=== PATIENT | male | born 1955 | race Caucasian/White ===

== ENCOUNTER → 2018-06-01 | Outpatient (CLI) | payer BC ==
--- NOTE | 2018-06-01 15:09 | Diagnostic Imaging Report ---
EXAMINATION: MRI of the lumbar spine without contrast HISTORY: Low back pain for the last 6 weeks after twisting the back COMPARISON: None. TECHNIQUE: Sagittal T1, T2, STIR; axial T2 and proton density. FINDINGS: It is assumed that there are 5 lumbar vertebrae. Curvature/Alignment: Normal lordosis. Subtle left-sided curvature. Vertebrae: No evidence of recent fracture, infection, or neoplasm. Conus: Normal, terminating at L1 Cauda equina: Unremarkable. Lower thoracic: Unremarkable. Paraspinal soft tissues: Partially visualized T2 hyperintense probable cyst in the left kidney, please see dictation of abdomen MRI and 07/24/2014 for further detail. Degenerative changes: L1-L2: Unremarkable. L2-L3: Mild symmetric disc bulge without canal or foraminal stenoses. L3-L4: Mild symmetric disc bulge with a small 3 mm AP diameter central disc protrusion and minimal flattening of the ventral thecal sac. Mild facet arthrosis. No significant canal or foraminal stenoses, no evidence of nerve root compression. L4-L5: Minimal disc bulge and endplate osteophytes, mild facet arthrosis. No canal or foraminal stenosis. L5-S1: Facet arthrosis minimally on the left with mild narrowing of the left lateral recess, no evidence of nerve root compression. IMPRESSION: Mild degenerative changes from L2-L3 to L5-S1 without significant spinal canal or foraminal stenosis. Signed by: Dr. Georgette Alvarez M.D. on 06/01/2018 3:06 PM
== END ==
LOC: MRI 10:25
PROVIDERS: ATTEND Family Medicine
DX: M51.26 Other intervertebral disc displacement, lumbar region (principal)
CPT/HCPCS: 72148

== ENCOUNTER → 2019-11-09 | Day surgery (SDC) | payer BC ==
[~2019-11-09] MED LIST: ALLOPURINOL300 MG PO; AMLODIPINE BESYL5 MG PO; BYSTOLIC10 MG PO; FENTANYL CITRATE/PF 100MCG/2 ML INJ ONE; FLOMAX0.4 MG PO; HYOSCYAMINE 0.125 MG TAB ONE; LIDOCAINE HCL 2% LOCAL INJ 5 ML SDV VIAL INJ ONE; MIDAZOLAM HCL 2 MG/2 ML VIAL ONE; NEXIUM I.V.40 MG PO; PROPOFOL IV EMULSION 10 MG/ML 50 ML VIAL ONE
--- OUTSIDE RECORDS SUMMARY | 2019-11-09 08:57 | XMS REPORT ---
Author Author [facility] Address Unknown Phone Unavailable Care Team Providers Care Expressive Therapist Name Role Phone DANGELO JACQUES Unavailable Unavailable Problems This patient has no known problems. Allergies, Adverse Reactions, Alerts This patient has no known allergies or adverse reactions. Medications This patient has no known medications. Results Test Description Test Time Test Comments Text Results Atomic Results Result Comments MRI SPINE LUMBAR WO 2018-06-01 12:24:00 [place] [address] Patient Name: DAE GOMEZ MR #: [id number] : 1955 Age/Sex: 62/M Req #: [id number] Adm Physician: Ordered by: JACQUES ANDREW DO Report #: [id number] Location: MRI Room/Bed: Procedure: [id number] MRI/MRI SPINE LUMBAR WO Exam Date: Exam Time: REPORT STATUS: Signed EXAMINATION: MRI of the lumbar spine without contrast HISTORY: Low back pain for the last 6 weeks after twisting the back COMPARISON: None. TECHNIQUE: Sagittal T1, T2, STIR; axial T2 and proton density. FINDINGS: It is assumed that there are 5 lumbar vertebrae. Curvature/Alignment: Normal lordosis. Subtle left-sided curvature. Vertebrae: No evidence of recent fracture, infection, or neoplasm. Conus: Normal, terminating at L1 Cauda equina: Unremarkable. Lower thoracic: Unremarkable. Paraspinal soft tissues: Partially visualized T2 hyperintense probable cyst in the left kidney, please see dictation of abdomen MRI and 07/24/2014 for further detail. Degenerative changes: L1- L2: Unremarkable. L2-L3: Mild symmetric disc bulge without canal or foraminal stenoses. L3-L4: Mild symmetric disc bulge with a small 3 mm AP diameter central disc protrusion and minimal flattening of the ventral thecal sac. Mild facet arthrosis. No significant canal or foraminal stenoses, no evidence of nerve root compression. L4-L5: Minimal disc bulge and endplate osteophytes, mild facet arthrosis. No canal or foraminal stenosis. L5-S1: Facet arthrosis minimally on the left with mild narrowing of the left lateral recess, no evidence of nerve root compression. IMPRESSION: Mild degenerative changes from L2-L3 to L5-S1 without significant spinal canal or foraminal stenosis. Signed by: Dr. Farida Alvarez M.D. on 06/01/2018 3:06 PM Dictated By: FARIDA ALVAREZ MD [id number] Transcribed By: ALEJANDRO on 06/01/18 1506 COPY TO: DANGELO JACQUES DO
[2019-11-09 12:00] VITALS: BP 122/77
--- NOTE | 2019-11-09 18:20 | Operative Report ---
DATE OF PROCEDURE: 11/09/2019 SURGEON: Brian Connell MD PROCEDURE: Colonoscopy with polypectomy. INDICATION FOR COLONOSCOPY: Colorectal cancer screening. MEDICATIONS: The patient was done under MAC, please see Anesthesiologist's note. PROCEDURE IN DETAIL: With the patient in left lateral decubitus position, a flexible fiberoptic Olympus colonoscope was inserted into the rectum with ease and advanced all the way to the cecum. Some minimal diverticular disease was noted in the cecum. The scope was then withdrawn slowly. Mucosa overlying the ascending and the transverse appeared to be within normal limits. One polyp was hot biopsied from the descending colon. A semi-circumferential mass that was ulcerated, was noted at approximately 28 cm from the anal verge that was biopsied and tattooed. One polyp was hot biopsied from the distal rectum. The scope was then retroflexed into the distal rectum and small internal hemorrhoids were noted, none of which was actively bleeding. The scope was then straightened out, it was subsequently withdrawn. The patient tolerated the procedure well. IMPRESSION: 1. Descending colon polyp, hot biopsied. 2. Semi-circumferential mass, sigmoid colon, ulcerated, 28 cm from the anal verge, biopsied and tattooed. 3. Rectal polyp, hot biopsied. 4. Internal hemorrhoids, none actively bleeding. PLAN: Follow up histology. CT scan of abdomen and pelvis. General surgical consultation with Dr. Tre Brennan. Brian Connell MD [facility] [place]/MODL /[id number] cc: DO Tre Lund MD
== END | disposition home or self-care (01) ==
LOC: OR 07:43
PROVIDERS: ATTEND Internal Medicine Gastroenterology
DX: Z12.11 Encounter for screening for malignant neoplasm of colon (principal); D12.5 Benign neoplasm of sigmoid colon; K63.5 Polyp of colon; K62.1 Rectal polyp; K64.8 Other hemorrhoids; K63.89 Other specified diseases of intestine; Z01.810 Encounter for preprocedural cardiovascular examination; K21.9 Gastro-esophageal reflux disease without esophagitis; I10 Essential (primary) hypertension; N40.0 Benign prostatic hyperplasia without lower urinary tract symptoms; M10.9 Gout, unspecified; Z68.33 Body mass index [BMI] 33.0-33.9, adult
CPT/HCPCS: 45380; 45384; 93005; J2001; J2250; J2704; J3010; 45378; 45381

== ENCOUNTER → 2019-11-12 | Outpatient (CLI) | payer BC ==
[~2019-11-12] MED LIST changes: +DIATRIZOATE MEGL/DIATRIZOA SOD 30 ML BTL PO ONE; -FENTANYL CITRATE/PF 100MCG/2 ML INJ ONE; -HYOSCYAMINE 0.125 MG TAB ONE; +IOPAMIDOL 370 MG/ML 200 ML INFUS..BTL INJ ONE; -LIDOCAINE HCL 2% LOCAL INJ 5 ML SDV VIAL INJ ONE; -MIDAZOLAM HCL 2 MG/2 ML VIAL ONE; -PROPOFOL IV EMULSION 10 MG/ML 50 ML VIAL ONE; +SODIUM CHLORIDE 0.9% 500ML 500 ML ONE; +SODIUM CHLORIDE 0.9% 50ML 50 ML ONE
[2019-11-12 16:18] LABS: CREATININE, SERUM 1.37 mg/dL (0.72-1.25)
--- NOTE | 2019-11-13 09:57 | Diagnostic Imaging Report ---
EXAM: CT Abdomen and Pelvis WITH contrast INDICATION: Colon/rectal polyp. COMPARISON: MRI lumbar spine 06/01/2018. TECHNIQUE: Abdomen and pelvis were scanned utilizing a multidetector helical scanner from the lung base to the pubic symphysis after administration of IV contrast. Coronal and sagittal reformations were obtained. Routine protocol was performed. Scan was performed when during portal venous phase. IV CONTRAST: 100 cc of Isovue-370 ORAL CONTRAST: Gastrografin COMPLICATIONS: None RADIATION DOSE: Total DLP: 848.8 mGy*cm Estimated effective dose: (DLP x 0.015 x size factor) mSv CTDIvol has been reviewed. It is below the limits set by the Radiation Protocol Committee (RPC). FINDINGS: LINES and TUBES: None. LOWER THORAX: Patchy dependent atelectasis. HEPATOBILIARY: Diffuse mild hepatic steatosis. Multiple subcentimeter hepatic hypodensities are too small to characterize, but likely represent cysts. No evidence of focal lesion. No biliary ductal dilation. GALLBLADDER: Cholelithiasis without evidence of cholecystitis. SPLEEN: No splenomegaly. PANCREAS: No focal masses or ductal dilatation. ADRENALS: No adrenal nodules KIDNEYS/URETERS: Kidneys enhance symmetrically. Bilateral renal cortical scarring. No evidence of solid mass. There is a 1.3 cm left upper pole simple cyst. GI TRACT: No evidence of wall thickening or distension. Appendix is not clearly identified. There is however no fat stranding or adenopathy in the right lower quadrant to suggest appendicitis. PELVIC ORGANS/BLADDER: Partially decompressed bladder which appears mildly thick-walled. The prostate measures 4.3 cm. LYMPH NODES: No lymphadenopathy. VESSELS: There is mild atherosclerotic disease in the aorta and major arterial branches. Retroaortic left renal vein. PERITONEUM / RETROPERITONEUM: No free air or fluid. BONES AND SOFT TISSUES: Unremarkable. CONCLUSION: No evidence of metastatic disease in the abdomen or pelvis. Mildly thick-walled bladder, which may represent decompression versus cystitis in the appropriate clinical setting. Diffuse mild hepatic steatosis. Signed by: Dr. Beena Mace MD on 11/13/2019 9:54 AM
== END ==
LOC: CT 15:30
PROVIDERS: ATTEND Internal Medicine Gastroenterology
DX: R19.09 Other intra-abdominal and pelvic swelling, mass and lump (principal); K63.9 Disease of intestine, unspecified
CPT/HCPCS: 36415; 74177; 82565; 84520; 96360; J7040; Q9967

== ENCOUNTER 2019-12-17 06:42 | Inpatient (IN) | payer BC ==
--- NOTE | 2019-12-13 11:20 | Diagnostic Imaging Report ---
EXAMINATION: CHEST 2 VIEWS INDICATION: Pre-operative COMPARISON: None FINDINGS: LINES/TUBES:None LUNGS:The lungs are well-inflated. No focal consolidation or pulmonary edema. PLEURA:No pleural effusion or pneumothorax. MEDIASTINUM:The cardiomediastinal silhouette appears normal in size and shape. BONES/SOFT TISSUES:No acute osseous injury. ABDOMEN:No free air under the diaphragm. IMPRESSION: No focal pneumonia or pulmonary edema. Signed by: Rio Jarrell MD on 12/13/2019 11:17 AM
[2019-12-13 11:26] LABS: ALBUMIN 3.8 g/dL (3.5-5.0); ALBUMIN/GLOBULIN RATIO 1.3 (0.8-2.0); ANION GAP 12.4 mmol/L (8-16); CALCIUM 9.3 mg/dL (8.4-10.2); CREATININE, SERUM 1.6 mg/dL (0.72-1.25); POTASSIUM 3.4 mmol/L (3.5-5.1)
[2019-12-13 11:29] LABS: BASOPHILS % 0.6 % (0.0-1.0); EOSINOPHILS # (AUTO) 0.1 (0.0-0.4); EOSINOPHILS % 1.8 % (0.0-6.0); HEMATOCRIT 39.6 % (38.2-49.6); HEMOGLOBIN 13.2 g/dL (14.0-18.0); LYMPHOCYTES # (AUTO) 1.5 (1.0-3.2); LYMPHOCYTES % 29.2 % (18.0-39.1); MEAN CORPUSCULAR HGB CONC 33.3 g/dL (31-35); MEAN CORPUSCULAR VOLUME 83.9 fL (81-99); MONOCYTES # (AUTO) 0.4 (0.2-0.8); MONOCYTES % 6.9 % (4.4-11.3); NEUTROPHILS # (AUTO) 3.1 (2.1-6.9); NEUTROPHILS % 60.9 % (38.7-80.0); PLATELET COUNT 179 x10e3/uL (140-360); RED BLOOD COUNT 4.72 x10e6/uL (4.3-5.7); RED CELL DISTRIBUTION WIDTH 13.3 % (11.7-14.4)
[~2019-12-17] VITALS: Ht 175.3 cm; Wt 104.3 kg
[~2019-12-17 06:42] MED LIST changes: +ASPIR 8181 MG PO; -DIATRIZOATE MEGL/DIATRIZOA SOD 30 ML BTL PO ONE; -IOPAMIDOL 370 MG/ML 200 ML INFUS..BTL INJ ONE; +NEXIUM40 MG PO; -SODIUM CHLORIDE 0.9% 500ML 500 ML ONE; -SODIUM CHLORIDE 0.9% 50ML 50 ML ONE
[2019-12-17] MEDS ORDERED: MINERAL OIL STERILE 10ML VIAL ONE (08:27)
[2019-12-17] MEDS ORDERED: ACETAMINOPHEN 1000 MG/100 ML 100 ML IV ONE (11:25)
[2019-12-17] MEDS ORDERED: NALOXONE HCL INJ 0.4 MG/ML AMP IV PRN (13:30)
[2019-12-17] MEDS ORDERED: ACETAMINOPHEN 1000 MG/100 ML IV PRN (13:30)
[2019-12-17] MEDS ORDERED: ONDANSETRON HCL INJ 2MG/ML 2ML 2 MG/ML VIAL IV PRN (13:30)
[2019-12-17] MEDS: HYDROMORPHONE 0.2MG/ML-SOD CHL 30ML PCA SYRINGE IV PRN ×2 (13:40→20:25)
[2019-12-17] MEDS ORDERED: FENTANYL CITRATE/PF 100MCG/2 ML INJ ONE ×2 (13:42→17:33)
[2019-12-17] MEDS: PANTOPRAZOLE 40 MG 10ML VIAL IV SCH (14:06)
--- NOTE | 2019-12-17 14:34 | NUR ---
RECEIVED PATIENT FROM PACU. PATIENT A/O X3, EVEN RESPIRATIONS ON 2LNC. LUNG SOUNDS CLEAR, BOWEL SOUNDS HYPOACTIVE. NGT TO RIGHT NARE LCWS. MEYER IN PLACE CLEAR YELLOW URINE PRESENT. FARM OWNER OPERATOR DILAUDID IN PLACE. ABDOMINAL DRESSING CLEAN AND DRY WITH ABDOMINAL BINDER. SCD'S BILATERALLY. RIGHT HAND 20 GAUGE IV WITH NS @ 125 CC/HR. ORIENTED PATIENT TO ROOM AND CALL LIGHT. BED LOW, WHEELS LOCKED, SIDE RAILS X2. CALL LIGHT IN REACH WILL CONTINUE TO MONITOR PATIENT.
[2019-12-17] MEDS: SODIUM CHLORIDE 0.9% 250ML IRRIG IR SCH ×3 (15:37→23:40)
[2019-12-17] MEDS: SODIUM CHLORIDE 0.9% 1000ML 1,000 ML IV SCH ×2 (15:37→23:40)
[2019-12-17 15:42] VITALS: BP 143/81
[2019-12-17 15:44] VITALS: BP 143/81
[2019-12-17 16:00] VITALS: BP 143/81
[2019-12-17] MEDS ORDERED: EPHEDRINE SULFATE INJ 50 MG/ML VIAL ONE (17:26)
[2019-12-17] MEDS ORDERED: NEOSTIGMINE 1 MG/ML 10ML VIAL ONE (17:26)
[2019-12-17] MEDS ORDERED: ROCURONIUM BROMIDE 10 MG/ML 5ML VIAL ONE (17:26)
[2019-12-17] MEDS ORDERED: CEFTRIAXONE SOD 1 GM VIAL ONE (17:26)
[2019-12-17] MEDS ORDERED: ONDANSETRON HCL INJ 2MG/ML 2ML 2 MG/ML VIAL ONE (17:26)
[2019-12-17] MEDS ORDERED: SEVOFLURANE INHAL SOLN 250 ML PEN BTL ONE (17:26)
[2019-12-17] MEDS ORDERED: LIDOCAINE HCL 2% LOCAL INJ 5 ML SDV VIAL INJ ONE (17:26)
[2019-12-17] MEDS ORDERED: DEXAMETHASONE SOD PHOS INJ 4 MG/ML VIAL ONE (17:26)
[2019-12-17] MEDS ORDERED: GLYCOPYRROLATE INJ 0.2 MG/ML VIAL ONE (17:26)
[2019-12-17] MEDS ORDERED: PROPOFOL IV EMULSION 10 MG/ML 20 ML VIAL ONE (17:26)
[2019-12-17] MEDS: CEFOXITIN 1GM/ D5W 50ML 50 ML IV SCH ×2 (17:30→23:40)
[2019-12-17] MEDS ORDERED: MIDAZOLAM HCL 2 MG/2 ML VIAL ONE (17:33)
--- NOTE | 2019-12-17 19:05 | NUR ---
Received patient awake, not in distress, with 02 support, NGT to the right nare to low cont suction noted, barrera catheter to urine bag draining yellow output, call light within easy reach, advised to call anytime when needed, will continue to monitor closely
[2019-12-17 20:00] VITALS: BP 130/83
[2019-12-17 21:00] VITALS: BP 143/81
[2019-12-18] VITALS (8 sets, daily range): BP systolic 120–169; BP diastolic 69–90
[2019-12-18] MEDS: SODIUM CHLORIDE 0.9% 250ML IRRIG IR SCH ×5 (04:29→20:00)
[2019-12-18] MEDS ORDERED: HYDROMORPHONE 0.2MG/ML-SOD CHL 30ML PCA SYRINGE IV ONE (04:59)
[2019-12-18] MEDS: HYDROMORPHONE 0.2MG/ML-SOD CHL 30ML PCA SYRINGE IV PRN ×2 (05:02→17:30)
[2019-12-18 05:38] LABS: BASOPHILS % 0.1 % (0.0-1.0); HEMATOCRIT 39.2 % (38.2-49.6); HEMOGLOBIN 13.1 g/dL (14.0-18.0); LYMPHOCYTES # (AUTO) 0.6 (1.0-3.2); LYMPHOCYTES % 3.9 % (18.0-39.1); MEAN CORPUSCULAR HGB CONC 33.4 g/dL (31-35); MEAN CORPUSCULAR VOLUME 83.8 fL (81-99); MONOCYTES # (AUTO) 0.9 (0.2-0.8); MONOCYTES % 6.1 % (4.4-11.3); NEUTROPHILS # (AUTO) 12.9 (2.1-6.9); NEUTROPHILS % 89.3 % (38.7-80.0); PLATELET COUNT 212 x10e3/uL (140-360); RED BLOOD COUNT 4.68 x10e6/uL (4.3-5.7); RED CELL DISTRIBUTION WIDTH 13.3 % (11.7-14.4)
[2019-12-18 05:54] LABS: ANION GAP 11.8 mmol/L (8-16); CALCIUM 8.4 mg/dL (8.4-10.2); CREATININE, SERUM 1.5 mg/dL (0.72-1.25); POTASSIUM 4.8 mmol/L (3.5-5.1)
[2019-12-18] MEDS: SODIUM CHLORIDE 0.9% 1000ML 1,000 ML IV SCH ×2 (07:00→15:51)
--- NOTE | 2019-12-18 07:00 | NUR ---
RECEIVED PATIENT AWAKE RESTING IN BED NO S/S OF DISTRESS. BED LOW, WHEELS LOCKED, SIDE RAILS X2, CALL LIGHT IN REACH WILL CONTINUE TO MONITOR PATIENT.
--- NOTE | 2019-12-18 07:01 | NUR ---
walking rounds done with abi RN, call light within easy reach
[2019-12-18] MEDS: AMLODIPINE BESYLATE 5 MG TAB PO SCH (09:08)
[2019-12-18] MEDS: NEBIVOLOL 10 MG TAB PO SCH (09:08)
--- NOTE | 2019-12-18 09:45 | NUR ---
ASSESSMENT: Spiritual concern Pt hopeful for post-surgical recovery. Pt identifies as Taoist. Pt thankful for screening which detected illness, stating, "it happened at just the right time." Intervention: Provided hospitality and empathic listening. Facilitated illness review. Informed pt of availability and how to reach bit sharpener, if needed. Outcome: No need to follow at this time. ROXANNE GUTHRIE Teaching Manager Spiritual Care Department O: [phone] Pager: [phone] ([phone] number calling from)
[2019-12-18] MEDS: PANTOPRAZOLE 40 MG 10ML VIAL IV SCH (15:51)
--- NOTE | 2019-12-18 18:55 | NUR ---
REPORT RECEIVED FROM DAY RN. PT IS ALERT AND ORINETED X3. COOPERATIVE WITH CARE. RESPIRATIONS ARE EVEN AND UNLABORED. TELE ON. NS INFUSING VIA RT HAND.COOK PICKLED MEAT PUMP DILAUDID ON DEMAND DOSE ONLY.PT REPORTS MANAGING HIS PAIN WELL. ABDOMNIAL DRESSING IS DRY AND INTACT. N/G TO LOW SUCTION.- OUTPUT CLEAR TO YELLOW. BOWEL SOUNDS ARE HYPOACTIVE.MEYER CATHETER TO GRAVITY- URINE IS CLEAR YELLOW IN COLOR.MEYER TO BE D/C IN AM. CALL LIGHT WITHIN REACH. BED LOCKED AND IN LOW POSITION. ORAL CARE GIVEN. PT REMAINS NPO.
[2019-12-19] VITALS: BP 166/82
[2019-12-19] MEDS: SODIUM CHLORIDE 0.9% 1000ML 1,000 ML IV SCH ×4 (01:27→16:46)
[2019-12-19] MEDS: SODIUM CHLORIDE 0.9% 250ML IRRIG IR SCH ×6 (04:00→20:00)
[2019-12-19 05:36] LABS: BASOPHILS % 0.2 % (0.0-1.0); EOSINOPHILS % 0.3 % (0.0-6.0); HEMATOCRIT 37.3 % (38.2-49.6); LYMPHOCYTES # (AUTO) 0.9 (1.0-3.2); LYMPHOCYTES % 8.6 % (18.0-39.1); MEAN CORPUSCULAR HEMOGLOBIN 27.9 pg (28-32); MEAN CORPUSCULAR HGB CONC 32.2 g/dL (31-35); MEAN CORPUSCULAR VOLUME 86.7 fL (81-99); MONOCYTES # (AUTO) 0.9 (0.2-0.8); MONOCYTES % 8.1 % (4.4-11.3); NEUTROPHILS # (AUTO) 8.8 (2.1-6.9); NEUTROPHILS % 82.3 % (38.7-80.0); PLATELET COUNT 180 x10e3/uL (140-360); RED CELL DISTRIBUTION WIDTH 13.5 % (11.7-14.4)
[2019-12-19 05:56] LABS: ANION GAP 9.2 mmol/L (8-16); BLOOD UREA NITROGEN 12 mg/dL (7-26); BUN/CREATININE RATIO 10 (6-25); CALCIUM 8.7 mg/dL (8.4-10.2); CARBON DIOXIDE 26 mmol/L (22-29); CHLORIDE 112 mmol/L (98-107); CREATININE, SERUM 1.17 mg/dL (0.72-1.25); EST GLOMERULAR FILTRATION RATE > 60 ML/MIN (60-); GLUCOSE 101 mg/dL (74-118); POTASSIUM 4.2 mmol/L (3.5-5.1); SODIUM 143 mmol/L (136-145)
--- NOTE | 2019-12-19 06:00 | NUR ---
MEYER D/C PER DR ORDER. PT TOLERATED PROCEDURE WELL. URINAL AT BEDSIDE. PT VERBALIZED UNDERSTANDING OF INSTRUCTIONS.
[2019-12-19] MEDS ORDERED: HYDROMORPHONE 0.2MG/ML-SOD CHL 30ML PCA SYRINGE IV ONE (07:12)
--- NOTE | 2019-12-19 09:30 | NUR ---
PT VOIDED VIA URINAL
[2019-12-19] MEDS: NEBIVOLOL 10 MG TAB PO SCH (10:00)
[2019-12-19] MEDS: AMLODIPINE BESYLATE 5 MG TAB PO SCH (10:00)
--- NOTE | 2019-12-19 10:20 | NUR ---
WITH STANDBY ASSIST PT OOB TO CHAIR, CALL LIGHT WITHIN REACH
[2019-12-19 10:23] VITALS: BP 163/97
[2019-12-19 12:21] VITALS: BP 148/99
[2019-12-19 16:22] VITALS: BP 159/94
[2019-12-19] MEDS: PANTOPRAZOLE 40 MG 10ML VIAL IV SCH (17:45)
--- NOTE | 2019-12-19 18:51 | NUR ---
NGT REMOVED PER MD ORDER, PT TOLERATED WELL, CALL LIGHT WITHIN REACH
[2019-12-19 20:00] VITALS: BP 150/89
[2019-12-19] MEDS: BISACODYL 10 MG SUPP PR SCH (21:07)
[2019-12-19 22:00] VITALS: BP 150/89
[2019-12-19] MEDS: HYDROMORPHONE 0.2MG/ML-SOD CHL 30ML PCA SYRINGE IV PRN (22:00)
[2019-12-20] VITALS (9 sets, daily range): BP systolic 130–178; BP diastolic 82–101
--- NOTE | 2019-12-20 00:35 | NUR ---
PATIENT IS ASKING FOR ICE CHIPS.SPOKE WITH .REFUSED TO START ICE CHIPS.VOIDED.BED LOCKED AND IN LOWEST POSITION.PHONE AND CALL LIGHT WITHIN REACH.INSTRUCTED TO CALL FOR ASSISTANCE NEEDED.ON NPO.
[2019-12-20] MEDS: SODIUM CHLORIDE 0.9% 1000ML 1,000 ML IV SCH ×3 (00:48→12:30)
[2019-12-20 05:47] LABS: BASOPHILS % 0.2 % (0.0-1.0); EOSINOPHILS # (AUTO) 0.1 (0.0-0.4); EOSINOPHILS % 0.9 % (0.0-6.0); HEMATOCRIT 39.9 % (38.2-49.6); LYMPHOCYTES % 12.3 % (18.0-39.1); MEAN CORPUSCULAR HEMOGLOBIN 27.8 pg (28-32); MEAN CORPUSCULAR HGB CONC 32.6 g/dL (31-35); MEAN CORPUSCULAR VOLUME 85.4 fL (81-99); MONOCYTES # (AUTO) 0.7 (0.2-0.8); NEUTROPHILS # (AUTO) 6.3 (2.1-6.9); NEUTROPHILS % 76.9 % (38.7-80.0); PLATELET COUNT 194 x10e3/uL (140-360); RED BLOOD COUNT 4.67 x10e6/uL (4.3-5.7); RED CELL DISTRIBUTION WIDTH 13.3 % (11.7-14.4)
[2019-12-20 06:09] LABS: ANION GAP 12.6 mmol/L (8-16); BLOOD UREA NITROGEN 14 mg/dL (7-26); BUN/CREATININE RATIO 13 (6-25); CALCIUM 9.3 mg/dL (8.4-10.2); CARBON DIOXIDE 25 mmol/L (22-29); CHLORIDE 111 mmol/L (98-107); CREATININE, SERUM 1.09 mg/dL (0.72-1.25); EST GLOMERULAR FILTRATION RATE > 60 ML/MIN (60-); GLUCOSE 92 mg/dL (74-118); POTASSIUM 3.6 mmol/L (3.5-5.1); SODIUM 145 mmol/L (136-145)
--- NOTE | 2019-12-20 07:00 | NUR ---
BED SIDE SHIFT REPORT GIVEN TO ONCOMING RN.STABLE CONDITION.
--- NOTE | 2019-12-20 09:17 | NUR ---
SPOKE WITH MD Rea CRAIG, MADE AWARE THAT PER TELE PT HAD AFIB 130-140'S, LEADS CHANGED,PT HAS ONLY BEEN SB 50'S , ORDERS NOTED,
[2019-12-20] MEDS: BISACODYL 10 MG SUPP PR SCH ×2 (09:27→21:00)
[2019-12-20] MEDS: AMLODIPINE BESYLATE 5 MG TAB PO SCH (09:27)
[2019-12-20] MEDS: NEBIVOLOL 10 MG TAB PO SCH (12:31)
[2019-12-20] MEDS: PANTOPRAZOLE 40 MG 10ML VIAL IV SCH (16:33)
[2019-12-20] MEDS: HYDROMORPHONE 0.2MG/ML-SOD CHL 30ML PCA SYRINGE IV PRN (16:33)
[2019-12-20] MEDS ORDERED: HYDROCODONE/APAP 7.5MG-325MG 1 EA TAB PO PRN (19:00)
[2019-12-20] MEDS ORDERED: HYDROMORPHONE 1MG/1ML INJ IV PRN (19:00)
--- NOTE | 2019-12-20 21:30 | NUR ---
patient refused Dulcolax, Patient stated he had 4,5 BM today
[2019-12-21] VITALS (7 sets, daily range): BP systolic 120–183; BP diastolic 78–100
[2019-12-21] MEDS: SODIUM CHLORIDE 0.9% 1000ML 1,000 ML IV SCH ×2 (00:30→15:06)
--- NOTE | 2019-12-21 07:20 | NUR ---
Received patient lying in bed with eyes open. Respiration even and unlabored without SOB. Call light in reach.
[2019-12-21] MEDS: BISACODYL 10 MG SUPP PR SCH (08:00)
[2019-12-21] MEDS: AMLODIPINE BESYLATE 5 MG TAB PO SCH (08:11)
[2019-12-21] MEDS: NEBIVOLOL 10 MG TAB PO SCH (08:11)
[2019-12-21] MEDS: PANTOPRAZOLE 40 MG 10ML VIAL IV SCH (18:47)
--- NOTE | 2019-12-21 19:08 | NUR ---
Report given to overnight stocker. Respiratory even and unlabored without SOB. Call light in reach.
[2019-12-22 00:01] VITALS: BP 120/78
[2019-12-22 00:19] VITALS: BP 120/78
[2019-12-22 04:01] VITALS: BP 139/91
--- NOTE | 2019-12-22 06:55 | NUR ---
Received patient lying in bed with eyes closed. Respiration even and unlabored without SOB. Call light in reach.
[2019-12-22 07:56] VITALS: BP 145/94
[2019-12-22] MEDS: AMLODIPINE BESYLATE 5 MG TAB PO SCH (08:55)
[2019-12-22] MEDS: NEBIVOLOL 10 MG TAB PO SCH (08:55)
[2019-12-22 09:04] VITALS: BP 145/94
[2019-12-22 11:25] VITALS: BP 128/84
[2019-12-22] MEDS ORDERED: HYDROCODON-ACE1 EA15 PO (11:39)
--- NOTE | 2019-12-22 11:47 | NUR ---
PIV to left hand, discontinue, catheter tip intact, no bleeding noted. Patient is transported via wheelchair to private vehicle. All personal belongings are with the patient.
--- NOTE | 2020-01-31 19:22 | Discharge Summary ---
ADMITTING DIAGNOSIS: Carcinoma of the sigmoid colon. DISCHARGE DIAGNOSIS: Carcinoma of the sigmoid colon. OPERATION PERFORMED: Exploratory laparotomy with a low anterior resection. COMPLICATIONS: None. HOSPITAL COURSE: This 64-year-old male was admitted to the hospital with a history having had a left colon cancer, diagnosed at endoscopy. He had undergone a full bowel prep and was admitted for resection. Physical examination at time of admission was essentially negative. Laboratory data was within normal limits. The patient went to surgery on the day of admission where he underwent an uneventful exploratory laparotomy with a low anterior resection. Postoperatively, he did very well. On the 2nd postoperative day, his NG tube was removed and he was started on a clear liquid diet, which was slowly and carefully advanced to a regular diet and finally on 12/22/2019, with the patient being afebrile, his vital signs being stable, his wound healing nicely, tolerating a regular diet well and having normal bowel movements. He was discharged to go home to be followed at the office at a later date. MD ADALGISA Zuniga/FERNANDA /[id number]
--- NOTE | 2020-02-28 15:26 | Operative Report ---
DATE OF PROCEDURE: 12/17/2019 SURGEON: Tre Brennan MD PREOPERATIVE DIAGNOSIS: Carcinoma of the sigmoid colon. POSTOPERATIVE DIAGNOSIS: Carcinoma of the sigmoid colon. OPERATION PERFORMED: Exploratory laparotomy with low anterior resection. ASSISTANTS: 1. Martín Brennan MD. 2. YASMIN Morrell. ANESTHESIA: General. COMPLICATIONS: None. ESTIMATED BLOOD LOSS: 75 mL. DESCRIPTION OF PROCEDURE: With the patient lying in bed in the supine position under good general endotracheal anesthesia, the abdomen was prepped with Betadine solution and draped in the usual manner. A lower midline incision was made, it was carried down through the subcutaneous tissue down to the midline fascia. The midline fascia was opened. The peritoneum was opened and the abdomen was entered. Upon entering the abdominal cavity, exploration revealed the presence of a palpable mass in the sigmoid colon consistent with carcinoma that the patient was known to have, exploration of the rest of the abdominal cavity did not reveal any sinus intraabdominal spread of disease. The liver was clean and there were no other palpable masses identified. We decided to go ahead and proceed with a colon resection as planned. The left colon was then mobilized off the lateral gutter and the left ureter was identified and preserved. The splenic flexure was then brought down and the colon was then divided at the level of the descending colon with an application of a ALEJANDRO stapler. The mesentery of the colon was then slowly and carefully divided using the EnSeal device, protecting the left ureter all the way down to the rectosigmoid junction. The colon was then divided between clamps and the specimen was sent for pathological examination. The anastomosis was then performed with a posterior row of 3-0 silk. The staple line and clamps were then removed and the internal row was then performed with 3-0 chromic. Gloves and instruments were changed, and the anastomosis was completed with an anterior seromuscular row of 3-0 silk. The whole area was then thoroughly irrigated. Perfect hemostasis was ascertained. The abdomen was then closed in layers. The peritoneum was closed with a running suture of #1 Vicryl. The midline fascia was closed with a running suture of #1 Vicryl and the skin was closed with clips. A dressing was applied. The sponge, lap, and needle counts were correct. The patient tolerated the procedure well and returned to the recovery room in stable condition. MD ADALGISA Zuniga/FERNANDA /[id number]
== END 2019-12-22 11:48 | disposition home or self-care (01) | DRG 331 ==
LOC: OR 06:42 → PACU V 13:27 → MED/SURG 14:35
PROVIDERS: ADMIT Surgery; ATTEND Surgery
PROC: 0DBM0ZZ Excision of Descending Colon, Open Approach (ICD-10-PCS; 2019-12-17)
PROC: 0DBP0ZZ Excision of Rectum, Open Approach (ICD-10-PCS; 2019-12-17)
PROC: 0DTN0ZZ Resection of Sigmoid Colon, Open Approach (ICD-10-PCS; principal; 2019-12-17 10:16)
DX: C18.7 Malignant neoplasm of sigmoid colon (principal); I10 Essential (primary) hypertension; M10.9 Gout, unspecified
CPT/HCPCS: 36415; 71046; 80048; 80053; 82948; 85025; 88309; 88342; J0696; J1100; J1170; J2001; J2250; J2405; J2710; J3010; J7030